=== PATIENT | female | born 1945 | race Caucasian/White ===

== ENCOUNTER 2022-04-30 16:57 | Emergency (ER) | payer OTHER, SELFPAY ==
--- NOTE | ~2022-04-30 | XR_ITS ---
EXAMINATION: XR chest 2V Exam Date/Time: 04/30/2022 17:36 CDT HISTORY: productive cough X's 4 days/non smoker Comparison: None available. RESULT: Lines, tubes, and devices: None. Lungs and pleura: Biapical pleural thickening. Senescent changes. Cardiomediastinal silhouette: Unremarkable. Other: No acute osseous or upper abdominal finding. IMPRESSION: No acute cardiopulmonary process. Reviewed, dictated and finalized at location K.
[2022-04-30 17:11] VITALS: BP 150/78; PULSE 79; RESP 18; TEMP 37.1; O2SAT 99
--- NOTE | 2022-04-30 17:15 | ED.URI ---
HPI - URI/Sore Throat General Chief Complaint: Upper Respiratory Infection Stated Complaint: Cough,Wheezing Time Seen by Provider: 04/30/22 17:30 Source: patient and RN notes reviewed Mode of arrival: ambulatory Limitations: no limitations History of Present Illness HPI Narrative: 77-year-old female presents concern for 3-day history of cough. Reports an episode of a feeling of shortness of breath after a coughing fit today. She denies fever, body aches, chills, sweats. Reports some nasal congestion rhinorrhea. She reports any history of problems breathing. MD elicited complaint: cough Related Data Home Medications Medication Instructions Recorded Confirmed alendronate 70 mg tablet (Fosamax) 70 mg PO WEEKLY 04/30/22 04/30/22 Allergies Allergy/AdvReac Type Severity Reaction Status Date / Time No Known Allergies Allergy Verified 04/30/22 17:16 Review of Systems Review of Systems: CONSTITUTIONAL: Denies malaise, chills, sweats, or fever. EYES: Denies visual changes, redness, or discharge. ENT: Reports rhinorrhea, congestion. Denies sinus pain, otalgia and sore throat. CARDIOVASCULAR: Denies chest pain, palpitations, or edema. RESPIRATORY: Reports cough, 1 episode of dyspnea. GASTROINTESTINAL: Denies abdominal pain, nausea, vomiting, diarrhea SKIN: Denies rash or itching. MUSCULOSKELETAL: Denies myalgia. NEUROLOGIC: Denies headache. All systems reviewed & are unremarkable except as noted in HPI and below PMFSH Comments At time of signature, agree with nursing past medical, surgical, social and family history. There is no relevant family history pertinent to the presenting complaint Exam Narrative: GENERAL: Nontoxic appearing And in no acute distress. HEAD: Normocephalic EYES: PERRLA, conjunctivae clear ENT: Nares clear, clear discharge. Mucous membranes moist. TM pearly monreal with dull light reflex bilaterally; no tragal tenderness. Oropharynx not erythematous without lesions. Tonsils not enlarged and without exudate, no drooling, no hoarseness, no trismus, uvula midline. NECK: Supple. No lymphadenopathy CHEST: Clear to auscultation, breath sounds diminished in the right base. No wheezing, rhonchi, rales, or stridor. No respiratory distress, speaks in full sentences. HEART: Regular rate and rhythm. No murmur heard. SKIN: Warm, dry, no rash. NEURO: Alert and oriented x3. PSYCH: Normal mood and affect Course Course Emergency Course: Patient is aware of diagnosis, understands and agrees to treatment plan. Anticipatory guidance given. Patient agrees to follow-up as directed and is aware of reasons to seek care at the emergency department. Portions of this record may have been created with voice recognition software Level of Care: Express Care Visit Vital Signs Vital signs: Vital Signs Temperature 98.8 F 04/30/22 17:11 Pulse Rate 79 04/30/22 17:11 Respiratory Rate 18 04/30/22 17:11 Blood Pressure 150/78 H 04/30/22 17:11 Pulse Oximetry 99 04/30/22 17:11 Oxygen Delivery Room Air 04/30/22 17:11 Temperature 98.8 F 04/30/22 17:11 Pulse Rate 79 04/30/22 17:11 Respiratory Rate 18 04/30/22 17:11 Blood Pressure 150/78 H 04/30/22 17:11 Pulse Oximetry 99 04/30/22 17:11 Oxygen Delivery Room Air 04/30/22 17:11 Reviewed. MDM - URI/Sore Throat MDM Narrative Medical decision making narrative: Differential diagnosis considered: Erickson virus, strep pharyngitis, allergic rhinitis, upper respiratory tract infection, sinusitis, rhinosinusitis, nasopharyngitis. viral pharyngitis, otitis media, otitis externa, pneumonia, bronchitis, viral cough syndrome, viral syndrome, and influenza. Exam findings show no acute concerns or changes; patient is non-toxic appearing and is in no distress. Patient is appropriate for outpatient treatment and follow-up. Lab Data Attestation: I reviewed the patient's lab results. Imaging Data My impression: Images reviewed, interpreted by radiologist, agr
== END 2022-04-30 18:12 | disposition home or self-care (01) ==
PROVIDERS: Emergency Provider Nurse Practitioner
DX: J40 Bronchitis, not specified as acute or chronic (principal); Z20.822 Contact with and (suspected) exposure to COVID-19; M81.0 Age-related osteoporosis without current pathological fracture
CPT/HCPCS: 71046; 87426; 87804; 99213; C9803; G0463

== ENCOUNTER 2022-09-18 08:05 | Emergency (ER) | payer OTHER, SELFPAY ==
--- NOTE | 2022-09-18 08:09 | ED.URI ---
HPI - URI/Sore Throat General Chief Complaint: Dizziness Stated Complaint: Dizziness Time Seen by Provider: 09/18/22 08:20 Source: patient Mode of arrival: ambulatory Limitations: no limitations History of Present Illness HPI Narrative: Rosalia is a 77-year-old female patient presenting to the clinic with complaints of dizziness x3 days. She reports that she does have a history of tinnitus however she has not had any dizziness with the tinnitus. States she feels as though she is unsteady on her feet/unsteady gait. States she felt this way when she gets up too quickly. Denies any upper respiratory symptoms, headache, visual changes, palpitations, shortness of breath, or chest pain. MD elicited complaint: sore throat and nasal congestion Related Data Home Medications Medication Instructions Recorded Confirmed ascorbate calcium (vitamin C) 500 500 mg PO DAILY 08/28/22 mg tablet calcium 167 mg-vitamin D3 1.67 1 cap PO DAILY 08/28/22 mcg-magnesium 83 mg capsule cholecalciferol (vitamin D3) 125 125 mcg PO DAILY 08/28/22 mcg (5,000 unit) capsule ferrous sulfate 325 mg (65 mg 325 mg PO DAILY 08/28/22 iron) tablet lutein 25 mg-zeaxanthin 5 mg 1 cap PO DAILY 08/28/22 capsule omega 6-jqz-zti-fish oil 100 cap PO 08/28/22 mg-160 mg-1,000 mg capsule vit B complex 100 combo no.2 100 1 tablet PO DAILY 08/28/22 mg tablet,extended release (Balanced B-100 Complex) vitamin E (dl, acetate) 450 mg 450 mg PO DAILY 08/28/22 (1,000 unit) capsule Allergies Allergy/AdvReac Type Severity Reaction Status Date / Time No Known Allergies Allergy Verified 09/13/22 10:26 Review of Systems Review of Systems: Pertinent positives per HPI. Patient denies any fever, chills, rash, headache, visual changes, cough, shortness of breath, chest pain, palpitations, nausea, vomiting, diarrhea, constipation, abdominal pain, or any urinary issues. [facility] Past Medical History Medical History Basal cell carcinoma Tinnitus Social History Social History Smoking status: Never smoker Alcohol intake: never Substance use: never Comments At the time of my signature, I reviewed and agree with the nursing past medical, surgical, social, and family history. There is no relevant family history pertinent to the patient complaint. Exam Narrative: General: Well-developed, well nourished, in no apparent distress Head: Normocephalic, atraumatic Eyes: Pupils equally round and reactive to light bilaterally, EOM intact, sclera and conjunctive clear, no discharge, lids normal Ears: TMs intact and dull, ear canals clear, no drainage, grossly hearing normal. Nose: Nares patent, no discharge, no inflammation, no sinus tenderness. Mouth: Oropharynx without lesions or masses, good dentition, MMM. Tongue midline, even rise and fall of uvula Neck: Supple, trachea midline, no enlargement of anterior or posterior cervical nodes, no thyroid masses or goiter palpable. Cardio: Regular rate and rhythm, s1 and s2 normal, no murmur appreciated. Resp: Clear to auscultation bilaterally anteriorly and posteriorly, no rhonchi, rales, wheezing or rubs Musculoskeletal: No deformity, non-tender to palpation, grossly normal range of motion, bilateral upper and lower muscle strength strong and equal, hand grasp strong and equal, bilateral patellar reflexes 2+, peripheral pulse strong, no edema, no cyanosis, normal gait and station Neuro: Alert and oriented x4 with normal speech, no focal deficits, cranial nerves I through XII intact, muscle strength 5 out of 5, sensation intact bilaterally Course Course Emergency Course: Portions of this record may have been created with voice recognition software. Level of Care: Express Care Visit Vital Signs Vital signs: Vital Signs Temperature 36.6 C 09/18/22 08:17 Pulse Rate 106
[2022-09-18 08:17] VITALS: BP 157/90; PULSE 106; RESP 16; TEMP 36.6; O2SAT 99
--- NOTE | 2022-09-18 08:31 | ECG_ITS ---
Measurements Intervals [place] Rate: 66 P: 65 [place]: 185 QRS: 4 QRSD: 89 T: 47 QT: 379 QTc: 398 Interpretive Statements SINUS RHYTHM POSSIBLE LEFT ATRIAL ENLARGEMENT [-0.1mV P WAVE IN V1/V2] NO PREVIOUS ECG AVAILABLE FOR COMPARISON Electronically Signed On 09-18-2022 14:59:42 SOFTWARE CONFIGURATION ANALYST by Steph El M.D.
[2022-09-18 08:50] VITALS: BP 133/75; PULSE 68
[2022-09-18 08:51] VITALS: BP 142/82; PULSE 68
[2022-09-18 08:52] VITALS: BP 132/82; PULSE 75
[2022-09-18 08:56] LABS: Glucose Point of Care 96 mg/dl (65-105)
== END 2022-09-18 09:28 | disposition home or self-care (01) ==
PROVIDERS: Emergency Provider Nurse Practitioner Family; PCP Emergency Medicine
DX: R42 Dizziness and giddiness (principal); R03.0 Elevated blood-pressure reading, without diagnosis of hypertension
CPT/HCPCS: 81003; 82948; 93005; 99213; G0463

== ENCOUNTER 2022-10-01 13:15 | Emergency (ER) | payer OTHER, SELFPAY ==
[2022-10-01] VITALS (7 sets, daily range): BP systolic 123–167; BP diastolic 63–88; PULSE 63–79; RESP 12–16; TEMP 36.7; O2SAT 98–100
--- NOTE | ~2022-10-01 | CT_ITS ---
EXAMINATION: CT brain wo con DATE: 10/01/2022 16:01 INDICATION: Dizziness. TECHNIQUE: Computed tomography (CT) of the head was performed without intravenous contrast. The mA wa s adjusted according to patient size. Iterative reconstruction technique was employed. The dose-lengt h product was 605.33 mGy-cm. COMPARISON: None FINDINGS: There is no intracranial hemorrhage, acute infarction, or abnormal intracranial mass lesion . There are scattered areas of low attenuation in the cerebral white matter. The ventricles are tani l in size. The orbits are normal. There is mucosal thickening in the paranasal sinuses. There is a sm all left mastoid effusion. IMPRESSION: 1. Mild nonspecific cerebral white matter disease, which likely represents chronic small vessel ische justin disease. Reviewed, dictated and finalized at location A. MA SURGEON IMPRESSION: 1. Mild nonspecific cerebral white matter disease, which likely represents chronometer repairer leatha small vessel ischemic disease.
--- NOTE | ~2022-10-01 | XR_ITS ---
EXAMINATION: XR chest 2V DATE: 10/01/2022 16:07 INDICATION: Dizziness. TECHNIQUE: Frontal and lateral views of the chest were obtained. COMPARISON: Chest 2 views 04/30/2022 FINDINGS: There is mild scarring at the lung apices. No pleural effusion or pneumothorax. The heart s ize is normal. IMPRESSION: 1. Stable mild scarring at the lung apices. Reviewed, dictated and finalized at location A. GER OF FINANCIAL REPORTING
--- NOTE | 2022-10-01 13:22 | ECG_ITS ---
Measurements Intervals [place] Rate: 67 P: 76 [place]: 153 QRS: 16 QRSD: 89 T: 70 QT: 374 QTc: 396 Interpretive Statements SINUS RHYTHM ATRIAL PREMATURE COMPLEX RSR' IN V1 OR V2, PROBABLY NORMAL VARIANT BASELINE ARTIFACT- I, II, III, AVR, AVL BORDERLINE ECG COMPARED TO ECG 09/18/2022 08:46:50 NO SIGNIFICANT CHANGES Electronically Signed On 10-02-2022 11:05:24 THERMAL ENGINEER by Jack Morris D.O.
[2022-10-01 15:50] LABS: Basophils Absolute Auto 0.1 K/mm3 (0.0-0.1); Basophils Percent Auto 0.6 % (0.2-1.2); Eosinophils Percent Auto 0.3 % (0-4.4); Hematocrit 46.4 % (37.0-47.0); Hemoglobin 15.8 g/dL (12.0-15.0); Immature Granulocyte Absolute 0.03 K/mm3 (0.00-0.031); Immature Granulocyte Percent A 0.4 % (0-0.5); Lymphocytes Absolute Auto 1.29 K/mm3 (0.9-3.2); Lymphocytes Percent Auto 16.6 % (18.3-44.2); Mean Corpuscular HGB Conc 34.1 g/dl (32-36); Mean Corpuscular Volume 91.2 fl (80-100); Mean Platelet Volume 10.1 fl (7.4-10.4); Monocytes Absolute Auto 0.5 K/mm3 (0.1-0.6); Neutrophils Absolute Auto 5.8 K/mm3 (1.3-6.7); Neutrophils Percent Auto 75.1 % (45.5-73.1); Platelet Count Result 198 k/mm3 (150-375); Red Blood Count 5.09 M/mm3 (4.2-5.4); Red Cell Distribution Width 12.2 % (11.5-14.5); White Blood Count 7.8 K/mm3 (4.5-10.0)
[2022-10-01 16:01] LABS: Appearance Urine Turbid (Clear); Bacteria Urine None Seen /hpf; Bilirubin Urine Negative (Negative); Blood Urine Negative (Negative); Color Urine Dark Yellow (Yellow); Glucose Urine UA Negative (Negative); Ketones Urine 2+ mg/dL (Negative); Leukocyte Esterase Ur Negative LEU/UL (Negative); Nitrate Urine Negative (Negative); Non Pathogenic Casts 0-2; Protein Urine Negative (Negative); RBC Urine 0-2 /hpf (0-2); Specific Grav Ur 1.018 (1.001-1.035); Squamous Epithelial Cell Urine None seen /hpf (Few); Urobilinogen Urine 0.2 mg/dL (<2.0); WBC Urine 0-5 /hpf
[2022-10-01 16:04] LABS: Add Urine Microscopic? YES
[2022-10-01] MEDS: SODIUM CHLORIDE 0.9% IV 1,000 ML 999 ML IV CONT (16:14)
[2022-10-01 16:43] LABS: Alanine Aminotransferase 18 U/L (6-35); Albumin Level 3.9 g/dL (3.5-5.1); Alkaline Phosphatase 45 U/L (38-126); Anion Gap 4 mmol/L (8-16); Aspartate Amino Transferase 24 U/L (14-36); Bilirubin,Total 0.6 mg/dL (0.2-1.3); Blood Urea Nitrogen 23 mg/dL (7-17); Calcium 8.5 mg/dL (8.4-10.2); Carbon Dioxide 30 mmol/L (22-30); Chloride 100 mmol/L (98-107); Estimated CRCL calculation 46 ml/min; Estimated Glomerular Filt Rate > 60; Glucose 124 mg/dL (65-110); Potassium 3.9 mmol/L (3.4-5.0); Sodium 134 mmol/L (137-145)
--- NOTE | 2022-10-01 17:03 | ED.DIZZY ---
HPI - Dizziness General Chief Complaint: Dizziness Stated Complaint: dizziness Time Seen by Provider: 10/01/22 15:31 Source: patient Mode of arrival: wheelchair Limitations: no limitations History of Present Illness HPI Narrative: This is a 77 year old female that presents to the ER for dizziness ongoing over the last couple of weeks. Reports room spinning dizziness which makes her feel off balance. She was evaluated at urgent care by her PCP for this. She had been started on a steroid taper and was taking meclizine as needed with relief. Today she had worsening dizziness once again which prompted her to be seen. She took her meclizine this morning without relief. Dizziness is worse with position changes and standing. Denies visual changes, vomiting, numbness, or weakness. Related Data Home Medications Medication Instructions Recorded Confirmed ascorbate calcium (vitamin C) 500 500 mg PO DAILY 08/28/22 mg tablet calcium 167 mg-vitamin D3 1.67 1 cap PO DAILY 08/28/22 mcg-magnesium 83 mg capsule cholecalciferol (vitamin D3) 125 125 mcg PO DAILY 08/28/22 mcg (5,000 unit) capsule ferrous sulfate 325 mg (65 mg 325 mg PO DAILY 08/28/22 iron) tablet lutein 25 mg-zeaxanthin 5 mg 1 cap PO DAILY 08/28/22 capsule omega 1-dqx-ike-fish oil 100 cap PO 08/28/22 mg-160 mg-1,000 mg capsule vit B complex 100 combo no.2 100 1 tablet PO DAILY 08/28/22 mg tablet,extended release (Balanced B-100 Complex) vitamin E (dl, acetate) 450 mg 450 mg PO DAILY 08/28/22 (1,000 unit) capsule Allergies Allergy/AdvReac Type Severity Reaction Status Date / Time No Known Allergies Allergy Verified 09/25/22 08:46 Review of Systems Review of Systems: CONSTITUTIONAL: Denies fever EYES: Denies visual changes ENT: Denies congestion CARDIOVASCULAR: Denies chest pain, or edema. RESPIRATORY: Denies dyspnea. GASTROINTESTINAL: Denies vomiting GENITOURINARY: Denies dysuria NEUROLOGIC: Denies numbness, or weakness. All systems reviewed & are unremarkable except as noted in HPI and below PMFSH Past Medical History Medical History Basal cell carcinoma Tinnitus Social History Social History Smoking status: Never smoker Alcohol intake: never Substance use: never Exam Narrative: GENERAL: Well-appearing, well-nourished, and in no acute distress. HEAD: Normocephalic, atraumatic. EYES: PERRLA and EOMI. ENT: Nares clear, no rhinorrhea or epistaxis. Mucous membranes moist. Oropharynx without tonsillar hypertrophy exudate or other lesions. Bilateral TMs pearly monreal non-bulging NECK: Supple. No adenopathy or masses. No JVD CHEST: Clear to auscultation. No respiratory distress. No wheezes rales or rhonchi HEART: Regular rate and rhythm. No murmur heard. Normal peripheral pulses. ABDOMEN: Soft, nontender, nondistended, normal active bowel sounds. EXTREMITIES: Normal range of motion. No edema. Strength equal in bilateral upper and lower extremities (5/5) SKIN: Warm, dry, no rash. NEURO: No focal deficits. Alert and oriented x3. Cranial nerves II through XII grossly intact. Normal [id number]. Normal [id number] PSYCH: Normal mood and affect Course Course Emergency Course: Patient and family updated on workup. Patient able to ambulate with a steady gate. Reports feeling much better and would like to go home Vital Signs Vital signs: Vital Signs Temperature 98.0 F 10/01/22 13:19 Pulse Rate 72 10/01/22 13:19 Respiratory Rate 16 10/01/22 13:19 Blood Pressure 167/88 H 10/01/22 13:19 Pulse Oximetry 99 10/01/22 13:19 Temperature 98.0 F 10/01/22 13:19 Pulse Rate 79 10/01/22 18:11 Respiratory Rate 12 10/01/22 18:11 Blood Pressure 124/74 10/01/22 18:11 Pulse Oximetry 98 10/01/22 18:11 MDM - Dizziness MDM Narrative Medical decision making narrative: Patient pr
[2022-10-01] MEDS: diazePAM INJ (*CRX) 10 MG/2 ML SYRINGE 5 MG IV PUSH (17:34)
--- NOTE | 2022-10-01 18:31 | PC.NURSE ---
Pt ambulated to and from bathroom with steady gait and no complaints of dizziness.
== END 2022-10-01 18:58 | disposition home or self-care (01) ==
PROVIDERS: Emergency Provider Physician Assistant; PCP Emergency Medicine
DX: R42 Dizziness and giddiness (principal); Z85.828 Personal history of other malignant neoplasm of skin; R90.82 White matter disease, unspecified
CPT/HCPCS: 36415; 70450; 71046; 80053; 81001; 85025; 93005; 96361; 96374; 99284; J3360; J7030

== ENCOUNTER → 2022-10-17 13:16 | Outpatient (CLI) | payer OTHER, SELFPAY ==
--- NOTE | ~2022-10-17 | US_ITS ---
EXAMINATION: US carotid duplex BI DATE: 10/17/2022 14:07 INDICATION: Vertigo TECHNIQUE: Grayscale, color Doppler, and pulsed Doppler images of the cervical carotid arteries were obtained. The degree of vessel stenosis is placed in one of the following categories: normal, <50%, 5 0-69%, >=70% but less than near-occlusion, near-occlusion, or total occlusion. Note that percent sten osis relative to normal distal artery lumen diameter is indirectly measured from velocity measurement s as described by Lamin, et al. Radiology 2003; 229:340-346. COMPARISON: None. FINDINGS: RIGHT: The right common carotid artery (CCA) peak systolic velocity (PSV) is 71 cm/s. The right internal car otid artery (ICA) PSV is 93 cm/s. The right ICA end-diastolic velocity (EDV) is 28 cm/s. The right IC A/CCA PSV ratio is 1.3. Grayscale and color Doppler images yield an estimate of <50% diameter reducti on from plaque in the ICA. The external carotid artery (ECA) PSV is 98 cm/s. There is antegrade flow in the right vertebral artery. LEFT: The left CCA PSV is 77 cm/s. The left ICA PSV is 94 cm/s. The left ICA EDV is 29 cm/s. The left ICA/C CA PSV ratio is 1.2. Grayscale and color Doppler images yield an estimate of <50% diameter reduction from plaque in the ICA. The ECA PSV is 82 cm/s. There is antegrade flow in the left vertebral artery. IMPRESSION: 1. <50% stenosis in the right internal carotid artery. 2. <50% stenosis in the left internal carotid artery. Reviewed, dictated and finalized at location A.
== END ==
PROVIDERS: PCP Emergency Medicine; Visit Provider Emergency Medicine
DX: I65.23 Occlusion and stenosis of bilateral carotid arteries (principal)
CPT/HCPCS: 93880

== ENCOUNTER → 2022-11-08 13:21 | Outpatient (CLI) | payer OTHER, SELFPAY ==
--- NOTE | ~2022-11-08 | MM_ITS ---
EXAMINATION: MM screening gorge BI w kasandra HISTORY: Screening mammogram TECHNIQUE: Craniocaudal and mediolateral oblique 3-D tomosynthesis images were obtained and synthetic 2-D images were generated. CAD analysis was submitted and interpreted. COMPARISON: No prior mammogram is available for comparison at this institution. BREAST PARENCHYMAL COMPOSITION: The breasts are heterogeneously dense, which may obscure small masses . FINDINGS: There is no evidence of suspicious mass, calcification, or architectural distortion to sugg est malignancy in either breast. There has been no suspicious interval change. IMPRESSION: 1. No mammographic evidence of malignancy. 2. Recommend routine screening mammography in one year. BI-RADS Category 1: Negative Reviewed, dictated and finalized at location A.
== END ==
PROVIDERS: PCP Emergency Medicine; Visit Provider Emergency Medicine
DX: Z12.31 Encounter for screening mammogram for malignant neoplasm of breast (principal)
CPT/HCPCS: 77063; 77067

== ENCOUNTER 2022-12-02 07:11 | Day surgery (SDC) | payer OTHER, SELFPAY ==
[2022-09-16 13:28] VITALS: BMI 18.8
[2022-11-14 12:28] VITALS: BMI 18.5
--- NOTE | 2022-11-29 15:22 | P.PNAN_ITS ---
Anes - Initial Pre Proc Eval Procedure: Operation Date: 12/02/22 09:00 Proposed Procedures p Screening Colonoscopy - Guilherme Hamlin MD Date/Time: 11/29/22 15:22 Surgeon: Guilherme Hamlin MD Pre Op Diagnosis: Neoplasm Screening Patient Data Age: 77 Gender: F Height: 1.63 m Weight: 49 kg Allergies Allergy/AdvReac Type Severity Reaction Status Date / Time No Known Allergies Allergy Verified 12/02/22 07:54 Home Medications Medication Instructions Recorded Confirmed Type alendronate 70 mg tablet (Fosamax) 70 mg PO WEEKLY #4 tabs 08/28/22 12/02/22 Rx ascorbate calcium (vitamin C) 500 500 mg PO DAILY 08/28/22 11/14/22 History mg tablet calcium 167 mg-vitamin D3 1.67 1 cap PO DAILY 08/28/22 11/14/22 History mcg-magnesium 83 mg capsule cholecalciferol (vitamin D3) 125 125 mcg PO DAILY 08/28/22 11/14/22 History mcg (5,000 unit) capsule ferrous sulfate 325 mg (65 mg 325 mg PO DAILY 08/28/22 11/14/22 History iron) tablet lutein 25 mg-zeaxanthin 5 mg 1 cap PO DAILY 08/28/22 11/14/22 History capsule omega 4-jia-jji-fish oil 100 1 cap PO DAILY 08/28/22 11/14/22 History mg-160 mg-1,000 mg capsule vit B complex 100 combo no.2 100 1 tablet PO DAILY 08/28/22 11/14/22 History mg tablet,extended release (Balanced B-100 Complex) vitamin E (dl, acetate) 450 mg 450 mg PO DAILY 08/28/22 11/14/22 History (1,000 unit) capsule Patient hx anesthesia problems: none Family hx anesthesia problems: none Results Review: All pre-operative results and documents have been reviewed as part of the pre-op erative evaluation. [facility] Past Medical History Medical History (Updated 11/29/22 @ 15:22 by Moisés Elliott MD) Basal cell carcinoma Hyperlipidemia Osteoporosis Tinnitus Family History Family History Father Basal cell carcinoma Heart disease Mother Peliosis rheumatica Social History Social History Smoking status: Never smoker Alcohol intake: never Substance use: never Substance use type: does not use Lack of Transportation: No Lack of Food: Never True Current Housing: I Have Housing Concerned About Future Housing: No Difficulty Paying Gas/Electric Bills: No Difficulty Paying for Meds: No Currently Unemployed: No Education: High School Diploma/GED Difficulty w/ Childcare or Family Care: No Living arrangements: alone Spiritual care concerns: No Anes - Eval Final PreProcedure Day of Procedure 11/29/22 15:22 Patient weight: normal Heart: regular rate and rhythm Lungs: clear to auscultation and normal air movement Airway: Mallampati scale class II Neurological: alert and oriented Last oral intake: >/= 8 hours ASA classification: II Emergent: no Anesthetic plan: proceed Anesthesia type and monitoring: general GIVS Results Review: All pre-operative results and documents have been reviewed as part of the pre- operative evaluation. Informed Consent: The patient's anesthetic plan and its attendant risks and benefits were discussed with the patient/family/POA. Questions were solicited and answers provided to the satisfaction of the patient/family/P
[2022-12-02 07:48] VITALS: BP 134/90; PULSE 74; RESP 16; TEMP 36.9; O2SAT 100; BMI 18.6
[2022-12-02] MEDS: LACTATED RINGERS 1,000 ML 150 ML IV CONT (08:10)
--- NOTE | 2022-12-02 08:44 | PM.HPGS ---
History of Present Illness History of Present Illness Consent: Risks, benefits, and alternatives have been discussed and questions answered. Patient agrees to proceed with procedure. Chief complaint: Neoplasm Screening Narrative: Rosalia Arguello is a 77 year old female with last colonoscopy 10 years ago Review of Systems Constitutional: Constitutional: Denies headache(s) and Denies weakness Eyes: Eyes: Denies blurry vision ENT: Reports Normal hearing present, Denies headache(s) and Denies neck pain Cardiovascular: Cardiovascular: Denies chest pain and Denies dyspnea Respiratory: Respiratory: Denies dyspnea Gastrointestinal: Gastrointestinal: Reports no additional gastrointestinal complaints Genitourinary: Genitourinary: Denies dysuria Musculoskeletal: Musculoskeletal: Denies neck pain Integumentary/Breasts: Skin/Breast: Denies dry skin Neurologic: Reports Normal hearing present, Denies headache(s) and Denies weakness Psychiatric: Psychiatric: Denies anxiety Endocrine: Endocrine: Denies change in body appearance Hematologic/Lymphatic: Hematologic/Lymphatic: Denies easy bleeding Allergic/Immunologic: Allergic/Immunologic: Denies urticaria PMFSH Past Medical History Medical History (Updated 11/29/22 @ 15:22 by Moisés Elliott MD) Basal cell carcinoma Hyperlipidemia Osteoporosis Tinnitus Family History Family History Father Basal cell carcinoma Heart disease Mother Peliosis rheumatica Social History Social History Smoking status: Never smoker Alcohol intake: never Substance use: never Substance use type: does not use Lack of Transportation: No Lack of Food: Never True Current Housing: I Have Housing Concerned About Future Housing: No Difficulty Paying Gas/Electric Bills: No Difficulty Paying for Meds: No Currently Unemployed: No Education: High School Diploma/GED Difficulty w/ Childcare or Family Care: No Living arrangements: alone Spiritual care concerns: No Meds Home Medications and Allergies Home Medications Medication Instructions Recorded Confirmed Type alendronate 70 mg tablet (Fosamax) 70 mg PO WEEKLY #4 tabs 08/28/22 12/02/22 Rx ascorbate calcium (vitamin C) 500 500 mg PO DAILY 08/28/22 11/14/22 History mg tablet calcium 167 mg-vitamin D3 1.67 1 cap PO DAILY 08/28/22 11/14/22 History mcg-magnesium 83 mg capsule cholecalciferol (vitamin D3) 125 125 mcg PO DAILY 08/28/22 11/14/22 History mcg (5,000 unit) capsule ferrous sulfate 325 mg (65 mg 325 mg PO DAILY 08/28/22 11/14/22 History iron) tablet lutein 25 mg-zeaxanthin 5 mg 1 cap PO DAILY 08/28/22 11/14/22 History capsule omega 4-jmv-pwu-fish oil 100 1 cap PO DAILY 08/28/22 11/14/22 History mg-160 mg-1,000 mg capsule vit B complex 100 combo no.2 100 1 tablet PO DAILY 08/28/22 11/14/22 History mg tablet,extended release (Balanced B-100 Complex) vitamin E (dl, acetate) 450 mg 450 mg PO DAILY 08/28/22 11/14/22 History (1,000 unit) capsule Allergies Allergy/AdvReac Type Severity Reaction Status Date / Time No Known Allergies Allergy Verified 12/02/22 07:54 Vital Signs Vital Signs - 24 hr 12/02/22 07:48 Temperature 98.5 F Pulse Rate 74 Respiratory Rate 16 Blood Pressure 134/90 Pulse Oximetry 100 Oxygen Delivery Room Air Exam Const: General: comfortable and no acute distress HENMT: Face/Nose/Sinus: Normal nares present Eyes: General: appearance normal, both eyes and all related structures Neck: Neck: no JVD Resp: Auscultation: clear to auscultation bilaterally Cardio: Rate: regular rate Rhythm: regular rhythm GI: Inspection: non-distended GI Palp: Yes Soft to palpation Skin: General skin exam: normal color Neuro: General: gait normal Speech: normal speech Extrem: General: normal to inspection Psych:
[2022-12-02 09:20] VITALS: BP 85/54; PULSE 65; RESP 14; O2SAT 99
[2022-12-02 09:30] VITALS: BP 94/56; PULSE 67; RESP 16; O2SAT 100
[2022-12-02 09:40] VITALS: BP 116/63; PULSE 71; RESP 18; O2SAT 100
--- NOTE | 2022-12-10 08:35 | WPDANESPN ---
Anes - Prog Note Post-Op Date/Time: 12/10/22 08:35 Cardiovascular status: normal Respiratory status: normal Airway patency: baseline Mental status: baseline Post-Op hydration status: normal Vital Signs: Last Vital Signs Temp 36.9 C 12/02/22 07:48 Pulse 71 12/02/22 09:40 Resp 18 12/02/22 09:40 BP 116/63 12/02/22 09:40 Pulse Ox 100 12/02/22 09:40 O2 Del Method Room Air 12/02/22 09:40 Pain Score (VAS): 0 Post-procedural complaints: none Patient Feedback: Patient satisfied with anesthetic care.
== END 2022-12-02 10:12 | disposition home or self-care (01) ==
PROVIDERS: PCP Emergency Medicine; Visit Provider Internal Medicine Gastroenterology
PROC: 0DJD8ZZ Inspection of Lower Intestinal Tract, Via Natural or Artificial Opening Endoscopic (ICD-10-PCS; CPT 45378; principal; 2022-12-02 09:00)
DX: Z12.11 Encounter for screening for malignant neoplasm of colon (principal)
CPT/HCPCS: 45385; 45381

== ENCOUNTER 2022-12-02 09:00 | Outpatient (NON) | payer OTHER, SELFPAY | END 2022-12-02 09:01 | disposition home or self-care (01) | LOC: ANHLAB 12-03 12:38 | PROVIDERS: PCP Emergency Medicine; Visit Provider Internal Medicine Gastroenterology | DX: Z12.11 Encounter for screening for malignant neoplasm of colon (principal) | CPT/HCPCS: 88305 ==

== ENCOUNTER → 2023-07-29 10:50 | Outpatient (CLI) | payer OTHER, SELFPAY ==
--- NOTE | ~2023-07-29 | DEXA_ITS ---
Bone Density Report Name: MARIA DEL CARMEN VILLAVICENCIO Age: 78 Sex: Female Ethnicity: White Date of : 1945 Indication: postmenopausal; screening for osteoporosis; Referring Provider: CLINTON HASTINGS Study: Bone densitometry was performed. Exam Date: July 29, 2023 Accession number: [id number] Bone Density: Region BMD T-score Z-score Classification AP Spine (L1-L4) 0.664 -3.5 -1.0 Osteoporosis Femoral Neck (Left) 0.574 -2.5 -0.3 Osteoporosis Total Hip (Left) 0.691 -2.1 -0.2 Osteopenia Femoral Neck (Right) 0.618 -2.1 0.1 Osteopenia Total Hip (Right) 0.736 -1.7 0.2 Osteopenia Total Hip Mean 0.714 -1.9 0.0 Osteopenia World Health Organization criteria for BMD impression classify patients as: Normal (T-score at or above -1.0), Osteopenia (T-score between -1.0 and -2.5), or Osteoporosis (T-score at or below -2.5). 10-year Fracture Risk: FRAX not reported because: Some T-score for Spine Total or Hip Total or Femoral Neck at or below -2.5 Treated for osteoporosis Clinical Information Provided by Patient: Is being treated for osteoporosis Has used the following medications: Fosamax (i.e. alendronate), Calcium, MTV, calcium includes vit D Patient maximum height was 64 Menopause Age: 64 Onset of menses at age 15 Number of children 3 Impression: The patient has osteoporosis, based on the Total Spine T-score. Discussion: It is important to ask patients whether they are taking their medications and to encourage continued and appropriate compliance with their osteoporosis therapies to reduce fracture risk. It is also important to review their risk factors and encourage appropriate calcium and vitamin D intakes, exercise, fall prevention and other lifestyle measures. Follow-Up: Consider a repeat BMD and Vertebral Fracture Assessment (VFA) exam in 2 years or sooner if medically necessary, to reassess this patient's status. Reported by: [facility] on 07/29/2023 11:19:00 AM. Reviewed, dictated and finalized at location A. ANDI
== END ==
PROVIDERS: PCP Emergency Medicine; Visit Provider Emergency Medicine
DX: M81.0 Age-related osteoporosis without current pathological fracture (principal); M85.852 Other specified disorders of bone density and structure, left thigh; M85.851 Other specified disorders of bone density and structure, right thigh
CPT/HCPCS: 77080

== ENCOUNTER 2023-12-19 07:56 | Outpatient (CLI) | payer OTHER, SELFPAY | END 2023-12-19 07:57 | disposition home or self-care (01) | LOC: ANHAUDIO 07:57 | PROVIDERS: PCP Emergency Medicine; Visit Provider Otolaryngology | DX: H90.3 Sensorineural hearing loss, bilateral (principal) | CPT/HCPCS: 92557; 92567 ==

== ENCOUNTER 2024-02-02 10:39 | Outpatient (CLI) | payer OTHER, SELFPAY ==
--- NOTE | ~2024-02-02 | MM_ITS ---
EXAMINATION: MM screening gorge BI w kasandra HISTORY: Screening TECHNIQUE: Craniocaudal and mediolateral oblique 3-D tomosynthesis images were obtained and synthetic 2-D images were generated. CAD analysis was submitted and interpreted. COMPARISON: 11/08/2022 BREAST PARENCHYMAL COMPOSITION: Dense: The breasts are heterogeneously dense, which may obscure small masses FINDINGS: There is no evidence of suspicious mass, calcification, or architectural distortion to sugg est malignancy in either breast. There has been no suspicious interval change. IMPRESSION: 1. No mammographic evidence of malignancy. 2. Recommend routine screening mammography in one year. BI-RADS Category 1: Negative Reviewed, dictated and finalized at location B.
== END 2024-02-02 10:40 ==
LOC: MICIMG 10:40
PROVIDERS: PCP Emergency Medicine; Visit Provider Emergency Medicine
DX: Z12.31 Encounter for screening mammogram for malignant neoplasm of breast (principal)
CPT/HCPCS: 77063; 77067

== ENCOUNTER 2025-01-20 07:40 | Outpatient (CLI) | payer OTHER, SELFPAY | END 2025-01-20 07:41 | disposition home or self-care (01) | LOC: ANHAUDIO 07:41 | PROVIDERS: PCP Emergency Medicine; Visit Provider Otolaryngology | DX: H91.93 Unspecified hearing loss, bilateral (principal) | CPT/HCPCS: 92557; 92567 ==

== ENCOUNTER 2025-04-27 12:10 | Outpatient (CLI) | payer OTHER, SELFPAY ==
--- NOTE | ~2025-04-27 | MM_ITS ---
EXAMINATION: MM screening gorge BI w kasandra HISTORY: Screening TECHNIQUE: Craniocaudal and mediolateral oblique 3-D tomosynthesis images were obtained and synthetic 2-D images were generated. CAD analysis was submitted and interpreted. COMPARISON: Comparison to multiple prior studies sequentially, with oldest reviewed study dated 11/08/2022. BREAST PARENCHYMAL COMPOSITION: Dense: The breasts are heterogeneously dense, which may obscure small masses FINDINGS: There is no evidence of suspicious mass, calcification, or architectural distortion to suggest malignancy in either breast. There has been no suspicious interval change. IMPRESSION: 1. No mammographic evidence of malignancy. 2. Recommend routine screening mammography in one year. BI-RADS Category 1: Negative Reviewed, dictated and finalized at location B.
== END 2025-04-27 12:11 | disposition home or self-care (01) ==
LOC: MICIMG 12:11
PROVIDERS: PCP Emergency Medicine; Visit Provider Emergency Medicine
DX: Z12.31 Encounter for screening mammogram for malignant neoplasm of breast (principal)
CPT/HCPCS: 77063; 77067